=== PATIENT | male | born 1935 | race Caucasian/White ===

== ENCOUNTER 2017-06-26 11:09 | Day surgery (SDC) | payer OTHER, MEDICARE ==
[2017-06-26] MEDS ORDERED: BALANCED SALT IRRIG PLAIN 500 ML BTL IRR ONE (12:19)
[2017-06-26] MEDS ORDERED: NS 0.9% VIAL 10 ML ONE (12:19)
[2017-06-26] MEDS ORDERED: EPINEPHRINE/PF 1 MG/ML AMP ONE (12:19)
[2017-06-26] MEDS ORDERED: DUOVISC 1 KIT OPTH ONE (12:20)
[2017-06-26] MEDS ORDERED: MOXIFLOXACIN HCL 10 DROPS/ML **OR USE OPTH ONE (12:20)
[2017-06-26] MEDS ORDERED: BUPIVACAINE 0.25% PF 10 ML VIAL ONE (12:48)
[2017-06-26] MEDS ORDERED: TETRACAINE HCL 0.5% 2ML OPTH ONE (12:48)
[2017-06-26] MEDS ORDERED: CYCLOPENTOLATE 1% OPTH 2 ML ONE (12:48)
[2017-06-26] MEDS ORDERED: LIDOCAINE 2% INJ, MPF 2 ML 3 ML ONE (12:49)
[2017-06-26] MEDS ORDERED: PHENYLEPHRINE 10% OPTH 5ML ONE (12:49)
[2017-06-26] MEDS: NA CHLORIDE 0.9% 500 ML ONE ×2 (13:00→13:40)
[2017-06-26] MEDS ORDERED: CYCLOPENTOLATE 1% OPTH 2 ML OPTH ONE ×2 (13:05→13:10)
[2017-06-26] MEDS ORDERED: PHENYLEPHRINE 10% OPTH 5ML OPTH ONE ×2 (13:05→13:10)
[2017-06-26] MEDS ORDERED: PROPOFOL 200 MG/20 ML VIAL IV ONE (14:05)
[2017-06-26] MEDS ORDERED: LIDOCAINE 1% MPF 2 ML AMPULE ONE (14:06)
--- NOTE | 2017-06-26 15:17 | P.BOP ---
Preoperative diagnosis: Nuclear sclerotic and posterior subcapsular cataract OD Postoperative diagnosis: Same Primary procedure: Phacoemulsification with IOL OD Estimated blood loss: None Anesthesia: Local (Subtenon's infusion with anesthesia for cataract surgery) Complications: None Implants: ZCB00 +17.0 Transferred to: Other (Day surgery) Condition: Good
--- NOTE | 2017-06-27 04:37 | OP ---
Date of Procedure: 06/26/2017 Surgeon: Tasha Gauthier MD Anesthesiologist: 1. Valente Bruno CRNA. 2. Trevor Cortes M.D. Preoperative Diagnosis: Nuclear sclerotic cataract, and posterior subcapsular cataract, possible irma ar cataract OD (right eye). Operation Performed: Phacoemulsification with intraocular lens implant. Anesthesia: Per cataract surgery. Complications: None. Description Of Procedure: In day surgery, the patient was prepped with Betadine and draped. A conju nctival incision was made in the inferior nasal quadrant with Salena scissors. A sub-Tenon block c onsisting of a 1:1 mixture of 2% Xylocaine and 0.25% bupivacaine was placed through the conjunctival incision with a blunt cannula. A Honan balloon was placed over the eye and the patient was transferr ed to the operating room. In the operating room the patient was prepped and draped in the usual sterile fashion for ophthalmic surgery. A lid speculum was placed in right eye. Two paracentesis sites were made superiorly and in feriorly in the limbal cornea. Viscoat was placed in the anterior chamber and a crescent blade was u sed to make a corneal groove and tunnel, and a keratome was used to enter the anterior chamber. Prov isc was placed in the anterior chamber and a 360 degree capsulotomy was performed with a cystitome. The lens was hydrodissected with BSS and rotated freely. The lens was removed with a stop and chop t echnique. 8.60 phaco CDE was used to remove the lens. Residual cortex was removed with the irrigati on and aspiration. Provisc was placed in the capsular bag. A ZCB00 +17.0 diopter lens was placed in the capsular bag without complications. Irrigation and aspiration were used to remove residual visc oelastic. The paracentesis sites were hydrated with BSS. The wound and paracentesis sites were insp ected and found to be watertight. Vigamox 0.07 cc was placed intracamerally at the end of the proced ure. The eye was irrigated with balanced salt solution. The eye was patched with a soft cotton patc h and Garner metal shield. The patient was returned to day surgery in good condition. Comments: A 1:5000 epinephrine was placed in the eye prior to Viscoat. The lens was hydrodelineated rather than hydrodissected. The patient had a lot of difficulty stay and still, and may need to con assistant fitness manager under general anesthesia for the next procedure. Discharge Instructions: Mr. Grant is discharged to home in good condition, and is to follow up with Dr. Gauthier in the morning. SCOTT/TONIO Voice ID: [id number] Report ID: [id number]
== END 2017-06-26 15:35 | disposition home or self-care (01) ==
LOC: OR 11:09
PROVIDERS: ATTEND Ophthalmology Retina Specialist
PROC: 08RJ3JZ Replacement of Right Lens with Synthetic Substitute, Percutaneous Approach (ICD-10-PCS; principal; 2017-06-26 11:15)
DX: H25.11 Age-related nuclear cataract, right eye (principal); H25.041 Posterior subcapsular polar age-related cataract, right eye; E78.00 Pure hypercholesterolemia, unspecified; Z85.46 Personal history of malignant neoplasm of prostate; Z79.82 Long term (current) use of aspirin; Z82.3 Family history of stroke; Z80.9 Family history of malignant neoplasm, unspecified
CPT/HCPCS: 66984; J0171; J2001; J3490

== ENCOUNTER 2017-08-14 06:15 | Observation (INO) | payer OTHER, MEDICARE ==
[2017-08-14] MEDS ORDERED: NA CHLORIDE 0.9% 1,000 ML ONE (06:35)
[2017-08-14 06:46] LABS: Absolute Lymphocytes (CBC) 0.8 K/uL (0.7-4.9); Absolute Monocytes 0.5 K/uL (0.1-1.3); Absolute Neutrophil 13.2 K/uL (1.8-8.0); Basophils % 0.3 % (0-1.3); Eosinophils % 0.4 % (0-4.4); Hematocrit 38.7 % (39.6-49.0); Lymphocytes % 5.2 % (15.3-44.8); MCH 30.3 pg (27.0-35.0); MCV 93.4 fL (80-100); MPV 8.7 fL (7.6-11.3); Monocytes % 3.2 % (3.3-12.3); RBC Red Blood Cell Count 4.15 M/uL (4.33-5.43)
[2017-08-14 07:04] LABS: Albumin 3.8 g/dL (3.4-5.0); Bilirubin Total 0.8 mg/dL (0.2-1.0); Protein, Total 7.3 g/dL (6.4-8.2)
--- NOTE | 2017-08-14 08:22 | RAD REPORT ---
EXAM DESCRIPTION: CT - Abdomen Pelvis W Contrast - 08/14/2017 8:01 am CLINICAL HISTORY: Abdominal pain COMPARISON: Chest film 2000 TECHNIQUE: Biphasic, helical CT imaging of the abdomen and pelvis was performed following 100 ml non -ionic IV contrast. Oral contrast was given. All CT scans are performed using dose optimization technique as appropriate and may include automated exposure control or mA/KV adjustment according to patient size. FINDINGS: Posterior lung base opacification is favored to be a combination of fibrosis and atelectas is. Acute lung base process is doubtful. No pleural effusion or pleural thickening. Heart size is upp er normal. No pericardial effusion. The liver, spleen, and pancreas show no suspicious findings. Gallbladder is distended with multiple s mall gallstones. Wall is slightly thickened and congested. No biliary tree abnormal dilatation. Symmetric renal function is seen with no hydronephrosis or suspicious renal mass. No pyelonephritis o r acute renal parenchymal process. No urinary bladder abnormality. No gastric dilatation or gastric wall thickening. No acute small bowel process. Moderate stool volume is present in the colon. Active colon process is not suspected. No free air free fluid or pneumatosis. No stranding outside of the gallbladder. No bulky lymphadeno nicholas or mass. No suspicious hernia findings. No adrenal abnormality. Infrarenal aortic aneurysm is present 3.6 cm AP x 4.2 cm TR. No acute aortic process suspected. Postsurgical changes are present from left inguinal repair. IMPRESSION: Abnormal gallbladder with multiple small gallstones, wall thickening and stranding in th e pericholecystic fat. No biliary tree dilatation. Correlation is needed with any acute cholecystitis findings. Infrarenal abdominal aortic aneurysm 3.6 x 4.2 cm. No acute component. Moderate stool volume filling but not dilating the colon. Acute GI process is not suspected.
[2017-08-14 08:56] LABS: Urine Blood NEGATIVE (NEG); Urine Glucose NEGATIVE (NEG); Urine Protein NEGATIVE (NEG)
[2017-08-14 08:56] LABS: Urine Amorphous Sediment 1+ /HPF (NONE SEEN); Urine Bacteria <20 /HPF (NONE SEEN); Urine Culture Reflex Order NOT NEEDED; Urine RBC <5 /HPF (NONE SEEN)
--- NOTE | 2017-08-14 09:36 | RAD REPORT ---
EXAM DESCRIPTION: US - Abdomen Exam Limited - 08/14/2017 9:00 am CLINICAL HISTORY: Abdominal pain, abnormal CT study COMPARISON: CT scan August 14 FINDINGS: Multiple small sub centimeter gallstones are present layering on the dependent portion of the gallbladder. Neely of the gallbladder are somewhat indistinct matching the edema appearance on CT imaging. No common duct stone or biliary tree dilatation identified. IMPRESSION: Multiple punctate gallstones. Gallbladder wall is indistinct matching the edema pattern seen on CT imaging. Findings are suspicious for acute cholecystitis and need correlation with clinical and laboratory fin dings.
--- NOTE | 2017-08-14 09:47 | ER ---
Nurse's Notes [facility] Name: Anil Sargent Age: 82 yrs Sex: Male : 1935 Arrival Date: 08/14/2017 Time: 06:16 Bed 5 Private MD: Diagnosis: Acute cholecystitis Presentation: 08/14 06:25 Presenting complaint: Patient states: Lower abdominal pain that began last night, worse lp1 this morning; Denies any N/V/D; States last BM was 2 days ago. Transition of care: patient was not received from another setting of care. Onset of symptoms was August 14, 2017. Risk Assessment: Do you want to hurt yourself or someone else? Patient reports no desire to harm self or others. Initial Sepsis Screen: Does the patient meet any 2 criteria? No. Patient's initial sepsis screen is negative. Does the patient have a suspected source of infection? No. Patient's initial sepsis screen is negative. Care prior to arrival: None. 06:25 Method Of Arrival: Wheelchair lp1 06:25 Acuity: ADDIE 3 lp1 Historical: - Allergies: 06:29 No Known Allergies; lp1 - Home Meds: 06:29 simvastatin 40 mg Oral tab 1 tab once daily [Active]; fenofibrate nanocrystallized 145 lp1 mg oral tab 1 tab once daily [Active]; paroxetine HCl 10 mg oral tab 1 tab once daily [Active]; aspirin 325 mg Oral TbEC 1 tab once daily [Active]; - PMHx: 06:29 Hyperlipidemia; Prostate Cancer; lp1 - PSHx: 06:29 Prostatectomy; Hernia repair; lp1 06:30 tumor removal; cataracts; lp1 - Immunization history:: Adult Immunizations up to date. - Social history:: Smoking status: Patient/guardian denies using tobacco. - Ebola Screening: : No symptoms or risks identified at this time. Screenin:30 Abuse screen: Denies threats or abuse. Denies injuries from another. Nutritional lp1 screening: No deficits noted. Tuberculosis screening: No symptoms or risk factors identified. Fall Risk None identified. Assessment: 06:30 General: Appears in no apparent distress. comfortable, slender, Behavior is calm, bp cooperative, appropriate for age. Pain: Complains of pain in abdomen. Neuro: Level of Consciousness is awake, alert, obeys commands, Oriented to person, place, time, situation, Appropriate for age. Cardiovascular: Rhythm is sinus rhythm. Respiratory: Airway is patent Respiratory effort is even, unlabored, Respiratory pattern is regular, symmetrical. GI: Bowel sounds present X 4 quads. Abd is soft X 4 quads. : No signs and/or symptoms were reported regarding the genitourinary system. EENT: No deficits noted. Derm: No deficits noted. Musculoskeletal: Circulation, motion, and sensation intact. Range of motion: intact in all extremities. 06:45 Reassessment: PO CONTRAST COMPLETED, CT NOTIFIED. bp 07:32 Reassessment: Patient appears in no apparent distress at this time. Patient and/or ph family updated on plan of care and expected duration. Pain level reassessed. Patient is alert, oriented x 3, equal unlabored respirations, skin warm/dry/pink. Pt resting quietly, given additional warm blankets, rates pain 4/10, denies nausea, awaiting CT scan. 08:30 Reassessment: Patient appears in no apparent distress at this time. No changes from previously documented assessment. Patient and/or family updated on plan of care and expected duration. Pain level reassessed. Patient is alert, oriented x 3, equal unlabored respirations, skin warm/dry/pink. 09:45 Reassessment: Patient appears in no apparent distress at this time. Patient and/or ph family updated on plan of care and expected duration. Pain level reassessed. Patient is alert, oriented x 3, equal unlabored respirations, skin warm/dry/pink. Pt assisted to bedside commode for BM, large amount of loose stool noted. Vital Signs: 06:26 BP 138 / 67; Pulse 98; Resp 18; Temp 98.7(O); Pulse Ox 97% on R/A; Weight 77.11 kg; lp1 Height 5 ft. 11 in. (180.34 cm); Pain 8/10; 06:30 BP 143 / 68; Pulse 70; Resp 14; Pulse Ox 97% ; bp 07:33 BP 142 / 61; Pulse 71; Resp 16; Pulse Ox 97% on R/A; ph 08:30 BP 128 / 58; Pulse 70; Resp 16; Pulse Ox 98% on R/A; ph 09:45 BP 138 / 62; Pulse 73; Resp 18; Pulse Ox 99% on R/A; ph 11:16 BP 117 / 51; Pulse 71; Resp 18; Temp 97.4; Pulse Ox 99% on R/A; ph 06:26 Body Mass Index 23.71 (77.11 kg, 180.34 cm) lp1 ED Course: 06:16 Patient arrived in ED. es 06:19 Placido Montenegro, RN is Primary Nurse. bp 06:20 Sina Mckeon MD is Attending Physician. ps1 06:26 Triage completed. lp1 06:30 Arm band placed on left wrist. lp1 06:30 Patient has correct armband on for positive identification. Placed in gown. Bed in low lp1 position. Pulse ox on. NIBP on. 06:35 Inserted saline lock: 20 gauge in right forearm, using aseptic technique. Blood bp collected. 07:08 Primary Nurse role handed off by Placido Montenegro, TRISH ag 07:14 Kanwal Garcia, RN is Primary Nurse. ph 08:01 CT Abd/Pelvis - W/Contrast In Process Unspecified. EDMS 08:59 Abdomen Limited US In Process Unspecified. EDMS 09:46 Enedina Wyatt MD is Hospitalizing Provider. ps1 11:14 No provider procedures requiring assistance completed. Patient admitted, IV remains in ph place. Administered Medications: 06:35 Drug: NS 0.9% 1000 ml Route: IV; Rate: 1 bolus; Site: right forearm; bp 07:35 Follow up: Response: No adverse reaction; IV Status: Completed infusion ph 10:22 Drug: Flagyl 500 mg Volume: 100 ml; Route: IVPB; Rate: 200 ml/hr; Infused Over: 30 ph mins; Site: right forearm; 11:15 Follow up: IV Status: Completed infusion ph 11:16 Follow up: Response: No adverse reaction ph 11:00 Drug: Cipro 400 mg Volume: 200 ml; Route: IVPB; Infused Over: 60 mins; Site: right ph forearm; 11:16 Follow up: Response: No adverse reaction; IV Status: Infusion continued upon admission ph Outcome: 09:46 Decision to Hospitalize by Provider. ps1 11:15 Admitted to Med/surg accompanied by tech, family with patient, via stretcher, room 204, ph with chart, Report called to [place] 11:15 Condition: stable 11:15 Instructed on the need for admit. 11:35 Patient left the ED. ph Signatures: Dispatcher [employer] Yudy Murphy Laura, RN RN lp1 Kamilla Kovacs Patricia, RN RN ph Placido Montenegro RN RN bp Sina Mckeon MD MD ps1
--- NOTE | 2017-08-14 09:47 | EDPHYS ---
Physician Documentation [facility] Name: Anil Sargent Age: 82 yrs Sex: Male : 1935 Arrival Date: 08/14/2017 Time: 06:16 Bed 5 Private MD: ED Physician Sina Mckeon HPI: 08/14 06:20 This 82 yrs old Male presents to ER via Unassigned with complaints of ps1 abdominal pain/constipation. 06:20 Onset was last night after dinner. Thought it was food related. Although states he has ps1 not had a bowel moment in 2 days and he usually has one daily which is abnormal for him. Pain was not localizing and described as generalized, non radiating, rated as moderate. . Historical: - Allergies: 06:29 No Known Allergies; lp1 - Home Meds: 06:29 simvastatin 40 mg Oral tab 1 tab once daily [Active]; fenofibrate nanocrystallized 145 lp1 mg oral tab 1 tab once daily [Active]; paroxetine HCl 10 mg oral tab 1 tab once daily [Active]; aspirin 325 mg Oral TbEC 1 tab once daily [Active]; - PMHx: 06:29 Hyperlipidemia; Prostate Cancer; lp1 - PSHx: 06:29 Prostatectomy; Hernia repair; lp1 06:30 tumor removal; cataracts; lp1 - Immunization history:: Adult Immunizations up to date. - Social history:: Smoking status: Patient/guardian denies using tobacco. - Ebola Screening: : No symptoms or risks identified at this time. ROS: 06:20 Constitutional: Negative for fever, chills, and weight loss, Eyes: Negative for injury, ps1 pain, redness, and discharge, ENT: Negative for injury, pain, and discharge, Cardiovascular: Negative for chest pain, palpitations, and edema, Respiratory: Negative for shortness of breath, cough, wheezing, and pleuritic chest pain, Back: Negative for injury and pain, MS/Extremity: Negative for injury and deformity, Skin: Negative for injury, rash, and discoloration. 06:20 Abdomen/GI: Positive for abdominal pain, constipation. Exam: 06:20 Constitutional: This is a well developed, well nourished patient who is awake, alert, ps1 and in no acute distress. Head/Face: Normocephalic, atraumatic. Eyes: Pupils equal round and reactive to light, extra-ocular motions intact. Lids and lashes normal. Conjunctiva and sclera are non-icteric and not injected. Chest/axilla: Normal chest wall appearance and motion. Nontender with no deformity. No lesions are appreciated. Respiratory: Lungs have equal breath sounds bilaterally, clear to auscultation and percussion. No rales, rhonchi or wheezes noted. No increased work of breathing, no retractions or nasal flaring. Abdomen/GI: Soft, non-tender, with normal bowel sounds. No distension or tympany. No guarding or rebound. No evidence of tenderness throughout. Back: No spinal tenderness. No costovertebral tenderness. Full range of motion. Skin: Warm, dry with normal turgor. Normal color with no rashes, no lesions, and no evidence of cellulitis. 06:20 Cardiovascular: Rate: tachycardic, Rhythm: regular, Pulses: no pulse deficits are appreciated. Vital Signs: 06:26 BP 138 / 67; Pulse 98; Resp 18; Temp 98.7(O); Pulse Ox 97% on R/A; Weight 77.11 kg; lp1 Height 5 ft. 11 in. (180.34 cm); Pain 8/10; 06:30 BP 143 / 68; Pulse 70; Resp 14; Pulse Ox 97% ; bp 07:33 BP 142 / 61; Pulse 71; Resp 16; Pulse Ox 97% on R/A; ph 08:30 BP 128 / 58; Pulse 70; Resp 16; Pulse Ox 98% on R/A; ph 09:45 BP 138 / 62; Pulse 73; Resp 18; Pulse Ox 99% on R/A; ph 11:16 BP 117 / 51; Pulse 71; Resp 18; Temp 97.4; Pulse Ox 99% on R/A; ph 06:26 Body Mass Index 23.71 (77.11 kg, 180.34 cm) lp1 MDM: 07:06 Patient medically screened. ps1 09:47 Data reviewed: vital signs, nurses notes, lab test result(s), radiologic studies, CT ps1 scan, ultrasound. ED course: contacted Dr. Grant 2/2 CT findings c/w acute cholecystitis. POC to admit to hospital with plan for surgery this afternoon. . 08/14 06:26 Order name: CBC with Diff; Complete Time: 07:08 ps1 07/02 06:26 Order name: Lipase; Complete Time: 07:08 ps1 08/14 06:26 Order name: Urine Microscopic Only; Complete Time: 09:37 ps1 08/14 06:26 Order name: CMP; Complete Time: 07:08 ps1 08/14 06:26 Order name: CT Abd/Pelvis - W/Contrast; Complete Time: 08:25 ps1 08/14 08:32 Order name: Urine Dipstick--Ancillary (enter results); Complete Time: 09:37 ag 08/14 06:26 Order name: IV Saline Lock; Complete Time: 06:29 ps1 08/14 08:27 Order name: Abdomen Limited US; Complete Time: 09:37 ps1 08/14 09:56 Order name: CONS Pharmacy Consult EDAR 08/14 09:56 Order name: CONS Physician Consult EDAR 08/14 09:56 Order name: NPO EDAR 08/14 06:26 Order name: Labs collected and sent; Complete Time: 06:29 ps1 08/14 06:26 Order name: Urine Dipstick-Ancillary (obtain specimen); Complete Time: 09:10 ps1 Administered Medications: 06:35 Drug: NS 0.9% 1000 ml Route: IV; Rate: 1 bolus; Site: right forearm; bp 07:35 Follow up: Response: No adverse reaction; IV Status: Completed infusion ph 10:22 Drug: Flagyl 500 mg Volume: 100 ml; Route: IVPB; Rate: 200 ml/hr; Infused Over: 30 ph mins; Site: right forearm; 11:15 Follow up: IV Status: Completed infusion ph 11:16 Follow up: Response: No adverse reaction ph 11:00 Drug: Cipro 400 mg Volume: 200 ml; Route: IVPB; Infused Over: 60 mins; Site: right ph forearm; 11:16 Follow up: Response: No adverse reaction; IV Status: Infusion continued upon admission ph Disposition: 08/14/17 09:46 Hospitalization ordered by Enedina Wyatt for Inpatient Admission. Preliminary diagnosis is Acute cholecystitis. - Bed requested for Telemetry/MedSurg (Inpatient). - Status is Inpatient Admission. ph - Condition is Stable. - Problem is new. - Symptoms are unchanged. UTI on Admission? No Signatures: Dispatcher [facility]UN[facility] CenterRacquel Taylor RN RN lp1 Kamilla Kovacs Patricia, RN RN ph Placido Montenegro, RN RN Sina Mckeon MD MD ps1 Corrections: (The following items were deleted from the chart) 10:47 09:46 Hospitalization Ordered by Enedina Wyatt MD for Inpatient Admission. Preliminary ag diagnosis is Acute cholecystitis. Bed requested for Telemetry/MedSurg (Inpatient). Status is Inpatient Admission. Condition is Stable. Problem is new. Symptoms are unchanged. UTI on Admission? No. ps1 11:35 10:47 08/14/2017 09:46 Hospitalization Ordered by Enedina Wyatt MD for Inpatient ph Admission. Preliminary diagnosis is Acute cholecystitis. Bed requested for Telemetry/MedSurg (Inpatient). Status is Inpatient Admission. Condition is Stable. Problem is new. Symptoms are unchanged. UTI on Admission? No. ag
[2017-08-14] MEDS ORDERED: ONDANSETRON 4 MG/2 ML VIAL IV PRN (09:53)
[2017-08-14] MEDS ORDERED: MORPHINE 4 MG/ML SYR IV PRN (09:53)
[2017-08-14] MEDS ORDERED: METRONIDAZOLE 500mg IVPB 500 MG/100 ML BAG IV ONE (10:19)
[2017-08-14] MEDS ORDERED: CIPROFLOXACIN 400mg IV 400 MG/200 ML BAG IV ONE (10:19)
[2017-08-14] MEDS: NA CHLORIDE 0.9% 1,000 ML IV SCH ×2 (11:58→21:21)
--- NOTE | 2017-08-14 14:53 | P.HP ---
Date of Service: 08/14/17 PC: This 82-year-old male presents emergency room with severe upper abdominal pain for diagnosis and treatment. HPC: Patient states he has been pain began suddenly last night, located in the right upper quadrant. Radiating to his back. Could not get relief and was brought to the emergency room PMH: History of hypertension, prostate surgery PSHx: States he had a colon resection at 1 point, and a hernia repair SOC: No known allergies, simvastatin 40 mg Oral tab 1 tab once daily [Active]; fenofibrate nanocrystallized 145 lp1 mg oral tab 1 tab once daily [Active]; paroxetine HCl 10 mg oral tab 1 tab once daily [Active]; aspirin 325 mg Oral TbEC 1 tab once daily [Active]; SYS REVIEW: No cough, wheeze, shortness of breath. States he has otherwise been in good health. Ambulates, reasonable exercise tolerance O/E awake alert uncomfortable at the moment looks ill HEENT: Not jaundice Chest: Chest movement is equal bilaterally ABD: Tender with positive Jones's sign LOCO: Intact DATA: Elevated white cell count, CT scan demonstrates acute cholecystitis with cholelithiasis IMPRESSION: Cholecystitis with cholelithiasis PLAN: I will take him to the operating room for laparoscopic possible open cholecystectomy with intraoperative cholangiogram. The risks of this procedure have been discussed. The possibility of bleeding, infection, injury to bile ducts blood vessels and intestines has been described. The possible need for an open and/or further surgeries and procedures was discussed. He understands and wants us to proceed.
[2017-08-14] MEDS: BUPIVACAINE 0.5% PF 10 ML VIAL ONE ×2 (14:54→15:05)
[2017-08-14] MEDS ORDERED: ROCURONIUM 50 MG/5 ML VIAL IV ONE (14:59)
[2017-08-14] MEDS ORDERED: LIDOCAINE 2% MPF 5 ML VIAL ONE (14:59)
[2017-08-14] MEDS ORDERED: PROPOFOL 200 MG/20 ML VIAL IV ONE (14:59)
[2017-08-14] MEDS ORDERED: EPHEDRINE SULF 50 MG/ML SYR ONE (15:11)
[2017-08-14] MEDS ORDERED: FENTANYL CITR 100 MCG/2 ML ONE (15:32)
[2017-08-14] MEDS ORDERED: DEXAMETHASONE 10 MG/ML VIAL ONE (15:39)
[2017-08-14] MEDS ORDERED: KETOROLAC 30 MG/ML INJ ONE (15:39)
[2017-08-14] MEDS ORDERED: ONDANSETRON HCL 40 MG/20 ML VIAL ONE (15:40)
[2017-08-14] MEDS ORDERED: NEOSTIGMINE 1 MG/ML -5 ML SYRINGE ONE (15:42)
[2017-08-14] MEDS ORDERED: GLYCOPYRROLATE 0.2 MG/ML SYR ONE (15:42)
[2017-08-14] MEDS ORDERED: Ringers Lactate 1,000 ML IV ONE (16:21)
--- NOTE | 2017-08-14 16:38 | P.OP ---
Preoperative diagnosis: The cholecystitis with cholelithiasis Postoperative diagnosis: The same with stone impacted in the cystic duct Primary procedure: Laparoscopic cholecystectomy Secondary procedure: Intraoperative cholangiogram with removal of stone stuck in the cystic duct Anesthesia: General Estimated blood loss: Less than 10 cc Specimen: 1 gallbladder and contents Operative Technique: The patient was brought to the operating room placed supine on the table. After the induction of adequate general endotracheal anesthesia, the area of the abdomen is prepped with a DuraPrep solution, and draped in the usual aseptic manner. A subumbilical incision was made. This brought down through the skin and subcutaneous tissue. The Visiport was used to enter the peritoneal cavity and created pneumoperitoneum to approximately 12 mm of mercury. Under direct vision a 5 mm trocar was placed in the upper midline, and 2 other 5 mm trocars on the right lateral side. The patient's head was then elevated and rolled towards the turbo electric operator's side. We could see an acutely inflamed and distended gallbladder. There was a marked amount of omentum around the gallbladder on the medial aspect extending over towards the stomach itself. These adhesions were taken down using blunt sharp dissection. The gallbladder was markedly distended with a areas of patchy necrosis once again on the serosal surface. An aspirating needle was used to remove some of the contents of the gallbladder itself. It was noted be clear mucoid type bile.. A grasper was placed on the fundus of the gallbladder. Another 1 was placed down by Franklin's pouch. Applying lateral traction we were able to dissect and expose the cystic duct and artery. These structures were also very friable. The artery was dealt with 1st. It was clipped and divided in the usual manner. A clip was then placed between the gallbladder and the cystic duct. An opening was made into the cystic duct. We attempted then to pass the cholangiocath into the cystic duct. Initially the catheter we get into the duct, but as soon as a blue was inflated we attempted to an object, the catheter was pushed out of the opening. The catheter was removed. We now gently manipulated the common bile duct cystic duct junction and the cystic duct. We it dislodged a stone in that had been stuck inside there. We were now able to replace the catheter, and obtain a cholangiogram. It showed good flow contrast into the duodenum, no filling defects were noted, and we could visualize the cystic duct itself. The catheter was removed. Clips were now placed on the distal portion of the cystic duct. The cystic duct was then divided. The gallbladder was now dissected free from the liver bed. It was is a be markedly thickened and especially edematous on the posterior wall. The gallbladder was now detached completely. It was placed into an Endo-Catch, and brought out through the umbilical trocar site. The gallbladder fossa was inspected to ensure adequate hemostasis. It was irrigated with a saline solution and the irrigant aspirated from the peritoneal cavity. 0.25% Marcaine was aerosolized into the right upper quadrant and the gallbladder fossa. The umbilical trocar site was now approximated with an Endo Close and an absorbable sutures. The pneumoperitoneum was then collapsed, the suture tied, and waylon applied to the skin. A further 0.25% Marcaine was injected around are incision sites. At the end of the procedure the patient was in a stable condition when sent to the recovery room. Needle sponge instrument count were correct. 1 specimen was sent for histopathology. Complications: None Transferred to: Recovery Room Condition: Good
--- NOTE | 2017-08-14 17:38 | RAD REPORT ---
EXAM DESCRIPTION: RAD - Cholangiogram Oper-Xray Or - 08/14/2017 5:21 pm CLINICAL HISTORY: Intraoperative cholangiogram COMPARISON: None. FINDINGS: There were 6 intraoperative portable C-arm views submitted from an intraoperative cholangi ogram. Fluoro time was 0.3 minutes. Cumulative dose was 12.0 mGy. Images show opacified biliary tree. No duct stone confirmed. No stricture or mass. Assessment is limited when only selected images are available. Correlation is needed with findings du ring real-time evaluation. IMPRESSION: Intraoperative cholangiogram findings as detailed.
[2017-08-14] MEDS: METRONIDAZOLE 500mg IVPB 500 MG/100 ML BAG IV SCH (17:59)
[2017-08-14] MEDS: CIPROFLOXACIN 400mg IV 400 MG/200 ML BAG IV SCH (21:21)
--- NOTE | 2017-08-14 22:13 | EKG ---
Test Date: 2017-08-14 Test Time: 14:44:02 [employer] Technician: BLANCO MEASUREMENT RESULTS: Intervals: Rate: 61 ID: [id number] QRSD: 84 QT: 406 QTc: 408 [place]: P: 66 ID: [id number] QRS: 18 T: 35 INTERPRETIVE STATEMENTS: Normal sinus rhythm Normal ECG Compared to ECG 06/19/2012 17:43:22 Myocardial infarct finding no longer present Electronically Signed On 08-14-17 22:12:48 CDT by Juan Last
[2017-08-15] MEDS: METRONIDAZOLE 500mg IVPB 500 MG/100 ML BAG IV SCH ×3 (00:14→11:54)
--- NOTE | 2017-08-15 00:45 | HP ---
Date of Admission: 08/14/2017 History Of Present Illness: An 82-year-old male who came to emergency room complaining of abdominal pain, mainly all over the abdomen, however also was more pronounced in the right upper quadrant. The patient also had been constipated. He had no fever, no chills, mild nausea, but no vomiting. He king d no other complaints. Review of Systems: Gastrointestinal: As above. Cardiovascular: No complaint. Genitourinary: No complaint. Skeletomuscular: No complaint. Neurological: No complaint. Respiratory: No complaint. Past Medical History: 1.Hyperlipidemia. 2.History of prostate cancer. 3.The patient has had hernia repair and prostatectomy in the past. Social History: No smoking, alcohol, or IV drug abuse history. Family History: Noncontributing. Medications: Include TriCor 145 mg p.o. daily, simvastatin 40 mg p.o. daily, Paxil 10 mg p.o. daily, multivitamins, and aspirin 325 mg p.o. daily. Allergies: NO KNOWN DRUG ALLERGIES. Physical Examination: Vital Signs: Blood pressure 125/60, pulse 64, temperature 98.1, O2 saturation 99% on room air. Head and Neck Examination: Equal, round, reactive pupils. Extraocular muscles intact. Neck: Supple. No JVD. No bruit. Heart: Regular rate and rhythm. No gallop. Chest: Clear to auscultation. Abdomen: Soft, with mild right upper quadrant tenderness. No rigidity. No rebound. Bowel sounds a re active. Extremities: No edema. No cyanosis. Peripheral pulses are felt. Neurological Examination: Alert, oriented, nonfocal. Grossly intact. Diagnostic Data: Abdominal and pelvic CT showed multiple small gallbladder stones with thickening an d stranding in the pericholecystic fat, a picture of cholecystitis. 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 No acute component. Abdominal ultrasound; multiple punctate gallstones wi th edema correlating with cholecystitis. Laboratory Data: White cell count 14.5, hemoglobin 12.6, hematocrit 38.7, platelets 312, neutrophils were at 90.9 which is high. Sodium 135, BUN 22, creatinine 0.9, glucose 115. Assessment And Plan: Acute calculous cholecystitis. The patient is being admitted, Surgery consulte d, and the patient has been put on IV fluid. He was given Cipro and Flagyl in the emergency room. W e will continue those and we will continue his home medicines for his chronic illnesses. We will valentin e care of him postoperatively. Look orders for details. MATHEUS/TONIO Voice ID: [id number]
[2017-08-15 05:06] LABS: Absolute Lymphocytes (CBC) 0.4 K/uL (0.7-4.9); Absolute Monocytes 0.5 K/uL (0.1-1.3); Absolute Neutrophil 15.7 K/uL (1.8-8.0); Basophils % 0.2 % (0-1.3); Hematocrit 30.7 % (39.6-49.0); Lymphocytes % 2.2 % (15.3-44.8); MCH 31.6 pg (27.0-35.0); MCV 93.5 fL (80-100); MPV 8.9 fL (7.6-11.3); Monocytes % 3.3 % (3.3-12.3); RBC Red Blood Cell Count 3.29 M/uL (4.33-5.43)
[2017-08-15 05:44] LABS: Potassium 4.1 mmol/L (3.5-5.1)
[2017-08-15 05:52] LABS: Blood Morphology Comment NOTED (NOT SEEN); Ovalocytes 2+; Platelet Estimate ADEQ
[2017-08-15] MEDS: NA CHLORIDE 0.9% 1,000 ML IV SCH (06:00)
[2017-08-15] MEDS: CIPROFLOXACIN 400mg IV 400 MG/200 ML BAG IV SCH (09:29)
--- NOTE | 2017-08-15 15:25 | PN ---
Subjective: The patient had his gallbladder removed endoscopically yesterday. He is feeling well. He is passing gases. He has no complaints. Objective: Vital signs: Blood pressure 100/50, pulse 56, temperature 98.1. Heart: Regular rate and rhythm. Chest: Clear to auscultation. Abdomen: Soft, benign. Bowel sounds are hypoactive, but heard. Extremities: No edema. No cyanosis. Peripheral pulses are felt. Neurological: Alert, oriented, nonfocal. Grossly intact. Laboratory Data: White cell count 16.6, hemoglobin 10.4, hematocrit 30.7, platelets 212. Sodium 133 , BUN 19, creatinine 0.9. Assessment And Plan: Status post cholecystectomy for calculous cholecystitis. The patient is postop eratively doing well. Started on liquid diet. Continue current treatment and management, pending [facility] recommendations for discharge. Look orders for details. MFS/MODL Voice ID: [id number] Report ID: [id number]
--- NOTE | 2017-08-15 17:13 | P.PN ---
Date of Service: 08/15/17 S: Patient feels better today, has been up ambulating, S states he is voiding on his own. Tolerating a diet, and his pain is well controlled. O: Vital signs are stable, incisions are clean A: Surgically stable status post laparoscopic cholecystectomy with intraoperative cholangiogram P: Discharge home will see me next Monday, call for an appointment.
== END 2017-08-15 18:10 | disposition home or self-care (01) ==
LOC: ER 06:15 → INTOOBSV 09:53 → ERHOLD 09:53 → 2ND 11:15
PROVIDERS: ADMIT Internal Medicine; ATTEND Internal Medicine
PROC: BF101ZZ Fluoroscopy of Bile Ducts using Low Osmolar Contrast (ICD-10-PCS; 2017-08-14)
PROC: 0FT44ZZ Resection of Gallbladder, Percutaneous Endoscopic Approach (ICD-10-PCS; principal; 2017-08-14 14:30)
DX: K80.01 Calculus of gallbladder with acute cholecystitis with obstruction (principal); E78.5 Hyperlipidemia, unspecified; I10 Essential (primary) hypertension; I49.3 Ventricular premature depolarization; Z85.46 Personal history of malignant neoplasm of prostate
CPT/HCPCS: 36415; 47563; 74177; 74300; 76705; 80048; 80053; 83690; 85025 ×2; 88304; 93005; 96361; 96365; 96368; 99285; G0378 ×2; J0744 ×3; J1100; J2405; J2710; J3010; J7030 ×3; Q9967 ×2; 81003; 81015